=== PATIENT | male | born 1960 | race Two or more races ===

== ENCOUNTER 2023-02-28 04:06 | Day surgery (SDC) | payer OTHER ==
[2023-02-24 09:41] VITALS: BMI 43.0
[2023-02-28] MEDS ORDERED: LIDOCAINE HCL/PF 2% SDV 5ML VIAL ONE (08:41)
[2023-02-28] MEDS ORDERED: PROPOFOL 20 ML ONE (08:42)
[2023-02-28] MEDS ORDERED: MIDAZOLAM HCL 2 MG/2 ML SINGLE DOSE VIAL ONE (08:42)
[2023-02-28] MEDS ORDERED: ROPIVACAINE HCL 0.5% 30ML VIAL ONE (08:59)
[2023-02-28] MEDS ORDERED: DEXAMETHASONE SOD PHOSPHATE 4 MG/1 ML VIAL ONE (09:01)
[2023-02-28] MEDS ORDERED: ceFAZolin SODIUM 1 GM VIAL ONE (09:52)
[2023-02-28] MEDS ORDERED: KETOROLAC TROMETHAMINE 30 MG/1 ML VIAL ONE (11:04)
[2023-02-28] MEDS ORDERED: ONDANSETRON 4 MG/2 ML VIAL ONE (11:04)
[2023-02-28] MEDS ORDERED: PROMETHAZINE HCL 25 MG/1 ML VIAL IVPB PRN (11:25)
[2023-02-28] MEDS ORDERED: ONDANSETRON 4 MG/2 ML VIAL IVPUSH PRN (11:25)
[2023-02-28] MEDS ORDERED: oxyCODONE HCL 5 MG TABLET PO PRN ×2 (11:25)
[2023-02-28] MEDS ORDERED: ACETAMINOPHEN 1000 MG/100 ML BAG IVPB ONE ×2 (11:25→11:54)
[2023-02-28] MEDS ORDERED: LACTATED RINGERS SOLUTION 1,000 ML IV SCH (11:30)
[2023-02-28] MEDS ORDERED: ACETAMINOPHEN INJECTION 100 ML IVPB ONE (11:51)
[2023-02-28 12:58] VITALS: PULSE 68
[2023-02-28 13:03] VITALS: BP 120/69; RESP 18; TEMP 97.5
== END 2023-02-28 14:55 | disposition home or self-care (01) ==
LOC: JASU-SURG 04:06
PROVIDERS: ATTEND Orthopaedic Surgery
PROC: 0PB94ZZ Excision of Right Clavicle, Percutaneous Endoscopic Approach (ICD-10-PCS; 2023-02-28)
PROC: 0LM14ZZ Reattachment of Right Shoulder Tendon, Percutaneous Endoscopic Approach (ICD-10-PCS; principal; 2023-02-28 09:00)
PROC: 0RNJ4ZZ Release Right Shoulder Joint, Percutaneous Endoscopic Approach (ICD-10-PCS; 2023-02-28 09:00)
DX: M75.41 Impingement syndrome of right shoulder (principal); M19.011 Primary osteoarthritis, right shoulder; M75.101 Unspecified rotator cuff tear or rupture of right shoulder, not specified as traumatic
CPT/HCPCS: 29826; 29827; C9781; L8699; 94760; C1713; C1889